=== PATIENT | female | born 1965 | race Caucasian/White ===

== ENCOUNTER 2018-04-15 21:30 | Emergency (ER) | payer OTHER ==
[2018-04-15] MEDS: HYDROCODONE/APAP (5/325) TAB PO (23:41)
== END 2018-04-16 02:08 | disposition home or self-care (01) ==
LOC: FTE 04-16 02:08
DX: S62.346A Nondisplaced fracture of base of fifth metacarpal bone, right hand, initial encounter for closed fracture (principal); E11.9 Type 2 diabetes mellitus without complications; F17.210 Nicotine dependence, cigarettes, uncomplicated; V89.2XXA Person injured in unspecified motor-vehicle accident, traffic, initial encounter
CPT/HCPCS: 29125; 71046; 72040; 73130-RT; 99284-25